=== PATIENT | female | born 1980 | race Caucasian/White ===

== ENCOUNTER → 2021-03-10 | Outpatient (CLI) | payer OTHER ==
[~2021-03-10] MED LIST: ACET325 PO; ALBU90I INH; BENZ100A PO; CYCL10 PO; HYDACE5 PO; IBUP400 PO; Monodox100 MG PO; PRED10 PO; PROM25 PO; [UNRECOGNIZED DRUG - OTHER]
[2021-03-12 14:10] LABS: CHLAMYDIA TRACHOMATIS, NAA Negative (Negative); HPV 16 Negative (Negative); HPV 18 Negative (Negative); HPV OTHER HR TYPES Negative (Negative)
== END ==
LOC: LAB 13:56 → LAB SHORT 13:56
PROVIDERS: Obstetrics & Gynecology
DX: Z01.419 Encounter for gynecological examination (general) (routine) without abnormal findings (principal); Z11.3 Encounter for screening for infections with a predominantly sexual mode of transmission; Z88.0 Allergy status to penicillin; Z88.5 Allergy status to narcotic agent
CPT/HCPCS: 87491; 87591; 87624; G0123

== ENCOUNTER → 2022-06-08 | Outpatient (CLI) | payer OTHER ==
[2022-06-10 01:10] LABS: CHLAMYDIA TRACHOMATIS, NAA Negative (Negative); HPV 16 Negative (Negative); HPV 18 Negative (Negative); HPV OTHER HR TYPES Negative (Negative)
== END ==
LOC: LAB SHORT 15:32 → LAB 15:32
PROVIDERS: Obstetrics & Gynecology
DX: Z01.419 Encounter for gynecological examination (general) (routine) without abnormal findings (principal); Z11.3 Encounter for screening for infections with a predominantly sexual mode of transmission
CPT/HCPCS: 87491; 87591; 87624; G0145

== ENCOUNTER → 2023-11-13 | Outpatient (CLI) | payer OTHER ==
[2023-11-13 18:38] LABS: Percent Saturation 10.7 % (15.0-50.0)
== END | disposition home or self-care (01) ==
LOC: LAB SHORT 09:51 → LAB 09:51
PROVIDERS: Internal Medicine Hematology & Oncology
DX: D50.0 Iron deficiency anemia secondary to blood loss (chronic) (principal)
CPT/HCPCS: 82728; 83540; 83550

== ENCOUNTER → 2024-01-16 | Outpatient (CLI) | payer OTHER | LOC: LAB 11:40 → LAB SHORT 11:40 | PROVIDERS: Internal Medicine Hematology & Oncology | DX: E61.1 Iron deficiency (principal) | CPT/HCPCS: 82728; 83540; 83550 ==

== ENCOUNTER → 2024-02-19 | Outpatient (CLI) | payer OTHER | LOC: LAB 08:27 → LAB SHORT 08:27 | DX: N92.0 Excessive and frequent menstruation with regular cycle (principal) | CPT/HCPCS: 88305 ==